=== PATIENT | female | born 1990 | race Caucasian/White ===

== ENCOUNTER 2020-09-22 13:44 | Emergency (ER) | payer OTHER ==
[~2020-09-22] VITALS: Ht 165.1 cm; Wt 46.8 kg
--- NOTE | 2020-09-22 14:23 | NUR ---
THIS IS A 30 YO F W/ C/O ARDON, DIZZINESS SINCE HITTING HEAD ON TV X8 DAYS AGO. PT DENIES LOC/VOMITING. PT HERE TRAVELING W/ SPOUSE FROM [place]. PT AWAKE AND ALERT, AMBULATORY W/ A STEADY GAIT TO THE BR. AT BEDSIDE FOR EVAL.
[2020-09-22 14:36] VITALS: BP 115/70
--- NOTE | 2020-09-22 14:44 | NUR ---
PER CT NOT INDICATED. PT TO BE DC.
--- NOTE | 2020-09-22 15:02 | NUR ---
Patient given discharge instructions and they have confirmed that they understand the instructions. Patient ambulatory with steady gait.
== END 2020-09-22 15:03 | disposition home or self-care (01) ==
LOC: ED 14:41
DX: S00.03XA Contusion of scalp, initial encounter (principal); R11.0 Nausea; R42 Dizziness and giddiness; X58.XXXA Exposure to other specified factors, initial encounter; Y93.89 Activity, other specified; Y92.009 Unspecified place in unspecified non-institutional (private) residence as the place of occurrence of the external cause; Y99.8 Other external cause status
CPT/HCPCS: 99283